=== PATIENT | female | born 1990 | race Caucasian/White ===

== ENCOUNTER 2018-02-13 20:57 | Emergency (ER) | END 2018-02-14 03:33 | disposition home or self-care (01) ==

== ENCOUNTER 2018-12-28 15:39 | Emergency (ER) | payer MEDICAID ==
[~2018-12-28] VITALS: Wt 66.9 kg
[~2018-12-28 15:39] MED LIST: ACET325T33 PO; GLYB2.5T2; HYDR-4011 PO; IBUP-1542 PO; POLY10DR19 BOTH EYES; PREN1TAB49; REG SC; bcp
[2018-12-28 16:44] VITALS: BP 139/86; PULSE 84; RESP 22
[2018-12-28] MEDS ORDERED: FAMOTIDINE 20 MG TAB PO ONE (17:30)
[2018-12-28] MEDS ORDERED: predniSONE 20 MG TAB PO ONE (17:30)
[2018-12-28] MEDS ORDERED: HC30CR25 TOP (17:38)
[2018-12-28] MEDS ORDERED: EPIN0.3P4 INJ (17:38)
[2018-12-28] MEDS ORDERED: BEN25 PO (17:38)
[2018-12-28] MEDS ORDERED: PRED20TA PO (17:38)
--- NOTE | 2018-12-28 18:45 | ERD ---
ER Documentation Chief Complaint Chief Complaint itchy throat, red eyes x1.5h 'friend had cats around'. relief w claritin x1 HPI This patient is an otherwise healthy 28-year-old female presenting to the emergency department complaining of rash to her bilateral upper and lower extremities which began just prior to arrival when she came into contact with a cat. She states she believes she is allergic to cats. Symptoms are mild currently. Additional symptoms include itchy, red, watery eyes. She took Claritin at home which significantly improved her symptoms. She denies any feelings of her throat closing, shortness of breath, or other symptoms currently. ROS All systems reviewed and are negative except as per history of present illness. Medications Home Meds Active Scripts Epinephrine (Epipen 2-Andre) 0.3 Mg/0.3 Ml Pen.injctr, 1 EA INJ ONCE PRN for ALLERGIC REACTION, #1 EA Prov:MARIA ELENA LEON PA-C 12/28/18 Hydrocortisone* Topical (Hydrocortisone* Topical) 2.5%-28.3 Gm Cream..g., 1 APPLIC TOP BID, #1 TUB Prov:MARIA ELENA LEON PA-C 12/28/18 Diphenhydramine Hcl* (Benadryl*) 25 Mg Cap, 25 MG PO Q6, #30 CAP Prov:MARIA ELENA LEON PA-C 12/28/18 Prednisone* (Prednisone*) 20 Mg Tab, 40 MG PO DAILY for 4 Days, TAB Prov:MARIA ELENA LEON PA-C 12/28/18 Ibuprofen* (Motrin*) 600 Mg Tab, 600 MG PO Q6H PRN for PAIN AND OR ELEVATED TEMP, #30 TAB Prov:RUPALI CAO NP 02/14/18 Hydrocodone/Acetaminophen (Perkins 5-325 Tablet) 1 Each Tablet, 1 TAB PO Q6H PRN for SEVERE PAIN LEVEL 7-10, #7 TAB Prov:RUPALI CAO NP 02/14/18 Ibuprofen* (Motrin*) 600 Mg Tab, 600 MG PO Q8, #30 0 Refills Prov:RIK TILLMAN PA-C 07/11/15 Acetaminophen* (Tylenol*) 325 Mg Tablet, 1 TAB PO Q6 PRN for PAIN AND OR ELEVATED TEMP, #20 TAB Prov:CHRISTY DALAL 02/23/15 Polymyxin B Sulfate-TMP* (Polymyxin B-TMP Eye Drops*) 10 Ml Drops, 1 DROP BOTH EYES QID for 7 Days, EA Prov:CRHISTY DALAL 02/23/15 Reported Medications Insulin Human Regular (Novolin-R) 100 Unit/Ml Soln, 0 SC DAILY 12/02/12 Glyburide* (Glyburide*) 2.5 Mg Tablet 02/18/11 Vits W-Ca,Fe,Fa(<1MG) () 1 Tab Tablet 02/18/11 [bcp] No Conflict Check 10/16/09 Allergies Allergies: Coded Allergies: Latex, Natural Rubber (Verified Allergy, Intermediate, itching/rash, 02/13/18) PMhx/Soc History of Surgery: Yes (tubaligation) Anesthesia Reaction: No Hx Neurological Disorder: No Hx Respiratory Disorders: No Hx Cardiac Disorders: No Hx Psychiatric Problems: No Hx Miscellaneous Medical Probl: Yes (essure permanent control implant) Hx Alcohol Use: No Hx Substance Use: No Hx Tobacco Use: No Smoking Status: Never smoker FmHx Family History: No diabetes Physical Exam Vitals Vital Signs Date Temp Pulse Resp B/P (MAP) Pulse Ox O2 O2 Flow FiO2 Time Delivery Rate 12/28/18 98.5 84 22 139/86 99 16:44 (103) Physical Exam Const: No acute distress Head: Atraumatic Eyes: Bilateral conjunctival injection with watery discharge. ENT: Normal External Ears, Nose and Mouth. The airway is patent. Uvula is midline. No uvulitis. No tongue swelling. No angioedema. Neck: Full range of motion. No meningismus. Resp: Clear to auscultation bilaterally. No wheezing. No respiratory distress. Cardio: Regular rate and rhythm, no murmurs Skin: Urticarial type rash noted to the bilateral upper and lower extremities. Back: No midline or flank tenderness Ext: No cyanosis, or edema Neur: Awake and alert Psych: Normal Mood and Affect Results 24 hrs Current Medications Medications Dose Sig/Maxine Start Time Status Last (Trade) Ordered Route PRN Stop Time Admin Dose Reason Admin Prednisone 40 mg ONCE ONCE 12/28/18 DC 12/28/18 (Prednisone) PO 17:30 17:35 12/28/18 17:31 Famotidine 20 mg ONCE ONCE 12/28/18 DC 12/28/18 (Pepcid) PO 17:30 17:35 12/28/18 17:31 Procedures/MDM 28-year-old female presenting to the emergency department complaining of itchy, watery eyes and rash. History and physical examination is most consistent with allergic reaction. There is no evidence of angioedema. No respiratory distress. Patient was administered prednisone and Pepcid in the department with improvement of her symptoms. Immunologic Assessment: Patient's allergic symptoms have stabilized while they have been evaluated in the department without evidence of persistent systemic reaction. Patient is healthy and capable of treating and responding to rebound reactions. Patient appropriate for outpatient allergy work up and treatment. Patient's dermatologic symptoms have stabilized while they have been evaluated in the department and are appropriate for outpatient work up. No evidence of Tomas Aneesh's syndrome, Kawasaki's, or sepsis. No evidence of life-threatening pathology at time of discharge. Pt/family in agreement with discharge plan/diagnosis. Pt/family advised to return immediately with any new or worsening symptoms. Follow-up with primary care physician within the next 1-2 days. Patient's blood pressure was elevated (>120/80) but appears stable without evidence of hypertension emergency or urg ency. The patient is to follow-up and pursue outpatient monitoring and therapy with their primary care physician within 1 week and return immediately if they have any new, worsening, or concerning symptoms. Disclaimer: Inadvertent spelling and grammatical errors are likely due to EHR/dictation software use and do not reflect on the overall quality of patient care. Also, please note that the electronic time recorded on this note does not necessarily reflect the actual time of the patient encounter. Departure Diagnosis: Primary Impression: Allergic reaction Encounter type: initial encounter Qualified Codes: T78.40XA - Allergy, unspecified, initial encounter Condition: Fair Patient Instructions: First Aid: Allergic Reactions Referrals: [facility] Usted se camp hecho un examen mdico de control que le indica que no est en marleny condicin que requiera tratamiento urgente en el Departamento de Emergencia. Un estudio ms profundo y el tratamiento de horner condicin pueden esperar sin ningn riesgo hasta que usted sea atendida/o en el consultorio de horner mdico o marleny clnica. Es responsabilidad suya arreglar marleny fernie para el seguimiento del kingsley. MANEJO DE CONDICIONES NO URGENTES EN EL FUTURO 1) Si usted tiene un mdico de atencin primaria: Usted debera llamar a horner mdico de atencin primaria antes de venir al departamento de emergencia. Despus de las horas de consultorio, horner doctor o horner asociado/a est disponible por telfono. El mdico o enfermero de loretta en el servicio telefnico puede asesorarle por jesi medio para atender el problema, o kingsley contrario se puede programar marleny fernie. 2) Si usted no tiene un mdico de atencin primaria: Llame al mdico o clnica de referencia que aparece abajo dania las horas de consultorio para hacer marleny fernie para que le vean. CLINICAS: [facility] [phone] [address] [address] [address] [address] [facility] [phone] [address] [address] [facility] [phone] [address] [facility]. [facility] [phone] [facility] [address] [facility] [address] [place] [id number] [phone] [facility]. [phone] [address] Additional Instructions: Call your primary care doctor TOMORROW for an appointment during the next 1-2 days.See the doctor sooner or return here if your condition worsens before your appointment time. MARIA ELENA LEON PA-C December 28, 2018 18:45
== END 2018-12-28 17:57 | disposition home or self-care (01) ==
LOC: FTE 15:39
DX: L50.0 Allergic urticaria (principal); Z79.4 Long term (current) use of insulin; Z91.040 Latex allergy status
CPT/HCPCS: J7512; Z7502; Z7610; 99283

== ENCOUNTER 2019-03-07 17:54 | Emergency (ER) | payer MEDICAID ==
[~2019-03-07] VITALS: Ht 152.4 cm; Wt 65.4 kg
[~2019-03-07 17:54] MED LIST changes: +BEN25 PO; +DICY10CA40 PO; +EPIN0.3P4 INJ; +HC30CR25 TOP; +ONDA4TAB14 PO; +PRED20TA PO
[2019-03-07 17:56] VITALS: Ht 152.4 cm; Wt 65.4 kg
[2019-03-07] MEDS ORDERED: ONDANSETRON 4 MG INJ IV STA (18:35)
[2019-03-07] MEDS ORDERED: SOD CHLORIDE 0.9% 1,000 ML IV ONE (19:00)
--- NOTE | 2019-03-07 19:37 | ERD ---
ER Documentation Chief Complaint Chief Complaint ap since wednesday HPI Patient is a 28-year-old female, past medical history of DM type II, presents the ER for concerns of nausea, abdominal cramping, and diarrhea for the last 2 days. Patient denies any fevers or chills. Patient denies any vomiting. Patient describes her stools to be mucousy, nonbloody. She denies any recent travel. No sick contacts. Of note, patient saw her [employer] 2 weeks ago. At that time she was prescribed metronidazole, ciprofloxacin and doxycycline for "infection" secondary to her Essure. Patient states she stopped taking these antibiotics 6 days ago because it was making her" stomach hurt." Patient denies any dysuria or frequency, urgency or hematuria. Patient denies any vaginal bleeding or vaginal discharge. ROS All systems reviewed and are negative except as per history of present illness. Medications Home Meds Active Scripts Ondansetron (Ondansetron Odt) 4 Mg Tab.rapdis, 4 MG PO Q6H PRN for NAUSEA AND/OR VOMITING, #10 TAB Prov:GRACE WHEELER PA-C 03/07/19 Dicyclomine HCl (Dicyclomine HCl) 10 Mg Capsule, 10 MG PO TID PRN for ABDOMINAL CRAMPING, #20 CAP Prov:GRACE WHEELER PA-C 03/07/19 Epinephrine (Epipen 2-Andre) 0.3 Mg/0.3 Ml Pen.injctr, 1 EA INJ ONCE PRN for ALLERGIC REACTION, #1 EA Prov:MARIA ELENA LEON PA-C 12/28/18 Hydrocortisone* Topical (Hydrocortisone* Topical) 2.5%-28.3 Gm Cream..g., 1 APPLIC TOP BID, #1 TUB Prov:MARIA ELENA LEON PA-C 12/28/18 Diphenhydramine Hcl* (Benadryl*) 25 Mg Cap, 25 MG PO Q6, #30 CAP Prov:MARIA ELENA LEON PA-C 12/28/18 Prednisone* (Prednisone*) 20 Mg Tab, 40 MG PO DAILY for 4 Days, TAB Prov:MARIA ELENA LEON PA-C 12/28/18 Ibuprofen* (Motrin*) 600 Mg Tab, 600 MG PO Q6H PRN for PAIN AND OR ELEVATED TEMP, #30 TAB Prov:RUPALI CAO [employer]GEBACK SPECIALIST 02/14/18 Hydrocodone/Acetaminophen (Liscomb 5-325 Tablet) 1 Each Tablet, 1 TAB PO Q6H PRN for SEVERE PAIN LEVEL 7-10, #7 TAB Prov:MARIELARUPALI NORRIS [employer]BACK SPECIALIST 02/14/18 Ibuprofen* (Motrin*) 600 Mg Tab, 600 MG PO Q8, #30 0 Refills Prov:RIK TILLMAN PA-C 07/11/15 Acetaminophen* (Tylenol*) 325 Mg Tablet, 1 TAB PO Q6 PRN for PAIN AND OR ELEVATED TEMP, #20 TAB Prov:CHRISTY DALAL 02/23/15 Polymyxin B Sulfate-TMP* (Polymyxin B-TMP Eye Drops*) 10 Ml Drops, 1 DROP BOTH EYES QID for 7 Days, EA Prov:CHRISTY DALAL 02/23/15 Reported Medications Insulin Human Regular (Novolin-R) 100 Unit/Ml Soln, 0 SC DAILY 12/02/12 Glyburide* (Glyburide*) 2.5 Mg Tablet 02/18/11 Vits W-Ca,Fe,Fa(<1MG) () 1 Tab Tablet 02/18/11 [bcp] No Conflict Check 10/16/09 Allergies Allergies: Coded Allergies: Latex, Natural Rubber (Verified Allergy, Intermediate, itching/rash, 02/13/18) PMhx/Soc History of Surgery: Yes (tubaligation) Anesthesia Reaction: No Hx Neurological Disorder: No Hx Respiratory Disorders: No Hx Cardiac Disorders: No Hx Psychiatric Problems: No Hx Miscellaneous Medical Probl: Yes (essure permanent control implant) Hx Alcohol Use: No Hx Substance Use: No Hx Tobacco Use: No Smoking Status: Never smoker FmHx Family History: diabetes Physical Exam Vitals Vital Signs Date Temp Pulse Resp B/P (MAP) Pulse Ox O2 O2 Flow FiO2 Time Delivery Rate 03/07/19 97.5 81 18 123/79 99 17:56 (94) Physical Exam GENERAL: Well-developed, well-nourished female. Appears in no acute distress. Speaking in full sentences HEAD: Normocephalic, atraumatic. EYES: Pupils are equally reactive bilaterally. EOMs grossly intact. No conjunctival erythema. ENT: Moist mucous membranes. No uvula deviation. No kissing tonsils. NECK: Supple. No meningismus. Normal range of motion of the neck. LUNG: Clear to auscultation bilaterally. No rhonchi, wheezing, rales or coarse breath sounds. HEART: Regular rate and rhythm. No murmurs, rubs or gallops. ABDOMEN: Soft, nontender, and nondistended. Positive bowel sounds in all four quadrants. No rebound tenderness, no guarding. (-) McBurney's point tenderness. No CVA tenderness EXTREMITIES: Equal pulses bilaterally. No peripheral clubbing, cyanosis or edema. No unilateral leg swelling. NEUROLOGIC: Alert and oriented. Moving all four extremities without any difficulty. Normal speech. Steady gait. SKIN: Normal color. Warm and dry. No rashes or lesions. Result Diagram: 03/07/19184103/07/191841 Results 24 hrs Laboratory Tests Test 03/07/19 18:42 03/07/19 18:43 White Blood Count 8.8 10^3/ul Red Blood Count 4.33 10^6/ul Hemoglobin 12.7 g/dl Hematocrit 37.0 % Mean Corpuscular Volume 85.5 fl Mean Corpuscular Hemoglobin 29.3 pg Mean Corpuscular Hemoglobin Concent 34.3 g/dl Red Cell Distribution Width 12.1 % Platelet Count 257 10^3/UL Mean Platelet Volume 10.4 fl Immature Granulocytes % 0.200 % Neutrophils % 69.4 % Lymphocytes % 23.5 % Monocytes % 3.3 % Eosinophils % 3.4 % Basophils % 0.2 % Nucleated Red Blood Cells % 0.0 /100WBC Immature Granulocytes # 0.020 10^3/ul Neutrophils # 6.1 10^3/ul Lymphocytes # 2.1 10^3/ul Monocytes # 0.3 10^3/ul Eosinophils # 0.3 10^3/ul Basophils # 0.0 10^3/ul Nucleated Red Blood Cells # 0.0 10^3/ul Urine Color STRAW Urine Clarity CLEAR Urine pH 6.0 Urine Specific [place] 1.003 Urine Ketones NEGATIVE mg/dL Urine Nitrite NEGATIVE mg/dL Urine Bilirubin NEGATIVE mg/dL Urine Urobilinogen NEGATIVE mg/dL Urine Leukocyte Esterase NEGATIVE Afshan/ul Urine Hemoglobin NEGATIVE mg/dL Urine Glucose NEGATIVE mg/dL Urine Total Protein NEGATIVE mg/dl Sodium Level 138 mmol/L Potassium Level 3.7 mmol/L Chloride Level 102 mmol/L Carbon Dioxide Level 28 mmol/L Anion Gap 8 Blood Urea Nitrogen 9 mg/dl Creatinine 0.53 mg/dl Est Glomerular Filtrat Rate mL/min > 60 mL/min Glucose Level 151 mg/dl Calcium Level 9.4 mg/dl Total Bilirubin 0.8 mg/dl Direct Bilirubin 0.00 mg/dl Indirect Bilirubin 0.8 mg/dl Aspartate Amino Transf (AST/SGOT) 27 IU/L Alanine Aminotransferase (ALT/SGPT) 23 IU/L Alkaline Phosphatase 76 IU/L Total Protein 7.1 g/dl Albumin 4.4 g/dl Globulin 2.70 g/dl Albumin/Globulin Ratio 1.62 Lipase 96 U/L POC Beta HCG, Qualitative NEGATIVE Current Medications Medications Dose Sig/Maxine Start Time Status Last (Trade) Ordered Route PRN Stop Time Admin Dose Reason Admin Ondansetron 4 mg ONCE STAT 03/07/19 DC 03/07/19 HCl (Zofran IV 18:35 18:44 Inj) 03/07/19 18:37 Sodium 1,000 ml @ Q1H ONCE 03/07/19 03/07/19 Chloride 1,000 mls/hr IV 19:00 18:44 03/07/19 19:59 Procedures/MDM MEDICAL DECISION MAKING: This is a 28-year-old female, past medical history of diabetes, presents the ER for concerns of nausea and diarrhea for 2 days vital signs were reviewed. Patient is afebrile. Abdominal exam is benign. Had no rebound or guarding. Patient had no peritoneal signs. IV line was established. Blood work was obtained. CBC showed no evidence of systemic infection or severe anemia. CMP showed no evidence of electrolyte abnormalities, severe acidosis, alkalosis, renal failure, or liver disease. Lipase showed no evidence of acute pancreatitis. UA showed no evidence of acute infection or hematuria. Low suspicion for UTI, pyelonephritis or nephrolithiasis. Urine test was negative. On reexamination, patient improvement in pain. Patient reported improvement symptoms after receiving IV fluids and Zofran. Patient advised to follow up with her OBGYN for re-eval of Essure concerns. At this time the patient presentation was consistent with diarrhea and abdominal pain. Patient advised to follow-up with primary care physician for stool studies on an outpatient basis. Unable to rule out bacterial sources at this time. Differential diagnosis include but was not limited acute coronary syndrome, AAA, mesenteric ischemia, lower lobe pneumonia, DKA, bowel perforation, cholecystitis, choledocholithiasis, ascending cholangitis, hepatic abscess, pancreatitis, PUD, gastritis, GERD, splenic rupture, diverticulitis, UTI, pyelonephritis, nephrolithiasis, appendicitis, constipation, , ectopic , PID, ovarian torsion or tubo-ovarian abscess. Patient was nontoxic, [id number] prior to discharge. PRESCRIPTIONS: Arslan Aviles DISCHARGE: At this time, patient is stable for discharge and outpatient management. I have instructed the patient to follow-up with his/her primary care physician in 1-2 days. I have instructed the patient to promptly return to the ER at any time for any new or worsening symptoms including increased pain, nausea, vomiting, diarrhea, fever, weakness or LOC. The patient and/or family expressed understanding of and agreement with this plan. All questions were answered. Home care instructions were provided. Departure Diagnosis: Primary Impression: Diarrhea Diarrhea type: unspecified type Qualified Codes: R19.7 - Diarrhea, unspecified Additional Impression: Abdominal pain Abdominal location: unspecified location Qualified Codes: R10.9 - Unspecified abdominal pain Condition: Fair Patient Instructions: Abdominal Pain, Treating Diarrhea Referrals: [facility] YOU HAVE RECEIVED A MEDICAL SCREENING EXAM AND THE RESULTS INDICATE THAT YOU DO NOT HAVE A CONDITION THAT REQUIRES URGENT TREATMENT IN THE EMERGENCY DEPARTMENT. FURTHER EVALUATION AND TREATMENT OF YOUR CONDITION CAN WAIT UNTIL YOU ARE SEEN IN YOUR DOCTORS OFFICE WITHIN THE NEXT 1-2 DAYS. IT IS YOUR RESPONSIBILITY TO MAKE AN APPOINTMENT FOR FOLOW-UP CARE. IF YOU HAVE A PRIMARY DOCTOR --you should call your primary doctor and schedule an appointment IF YOU DO NOT HAVE A PRIMARY DOCTOR YOU CAN CALL OUR PHYSICIAN REFERRAL HOTLINE AT IF YOU CAN NOT AFFORD TO SEE A PHYSICIAN YOU CAN CHOSE FROM THE FOLLOWING [facility] [address] [facility] [address] [facility] [address] [facility] [address] [facility] [address] [facility] [facility] [address] [facility]. [facility] YOU HAVE RECEIVED A MEDICAL SCREENING EXAM AND THE RESULTS INDICATE THAT YOU DO NOT HAVE A CONDITION THAT REQUIRES URGENT TREATMENT IN THE EMERGENCY DEPARTMENT. FURTHER EVALUATION AND TREATMENT OF YOUR CONDITION CAN WAIT UNTIL YOU ARE SEEN IN YOUR DOCTORS OFFICE WITHIN THE NEXT 1-2 DAYS. IT IS YOUR RESPONSIBILITY TO MAKE AN APPOINTMENT FOR FOLOW-UP CARE. IF YOU HAVE A PRIMARY DOCTOR --you should call your primary doctor and schedule and appointment IF YOU DO NOT HAVE A PRIMARY DOCTOR YOU CAN CALL OUR PHYSICIAN REFERRAL HOTLINE AT . IF YOU CAN NOT AFFORD TO SEE A PHYSICIAN YOU CAN CHOSE FROM THE FOLLOWING [facility] INSTITUTIONS: [facility] [address] [place] [address] [facility] [address] [place] [address] [facility] [address] [place] [address] Additional Instructions: Follow-up with your primary care physician for stool studies on outpatient basis. Call your primary care doctor TOMORROW for an appointment during the next 1-2 days.See the doctor sooner or return here if your condition worsens before your appointment time. GRACE WHEELER PA-C Mar 07, 2019 19:37
[2019-03-07 19:54] VITALS: BP 125/67; PULSE 74; RESP 18
== END 2019-03-07 19:56 | disposition home or self-care (01) ==
LOC: FTE 17:54
DX: R19.7 Diarrhea, unspecified (principal); R10.9 Unspecified abdominal pain; E11.9 Type 2 diabetes mellitus without complications; Z79.4 Long term (current) use of insulin; Z91.040 Latex allergy status
CPT/HCPCS: 36415; 80053; 81003; 81025; 83690; 85025; 96361; 96374; J2405; J7030; Z7502